=== PATIENT | male | born 1990 | race Caucasian/White ===

== ENCOUNTER 2021-02-24 12:47 | Emergency (ER) | payer MEDICAID ==
--- NOTE | 2021-02-24 13:46 | XRAY Report ---
PROCEDURE: Wrist 3 View RT INDICATIONS: FOOSH, skateboarding TECHNIQUE: 3 views of the wrist were acquired. COMPARISON: None FINDINGS: Bones: No fractures or dislocations. No suspicious bony lesions. Soft tissues: No suspicious soft tissue calcifications. Soft tissue swelling is noted diffusely thr oughout the wrist. IMPRESSION: Soft tissue swelling without evidence of an acute osseous abnormality. Reviewed by: Marco Benton DO on 02/24/2021 12:44 PM JETHRO Approved by: Marco Benton DO on 02/24/2021 12:44 PM AKAZUL Station ID: [id number]
[2021-02-24] MEDS ORDERED: HYDROcod/ACETAM 5/325 MG TABLET PO STA (14:17)
--- NOTE | 2021-02-24 14:23 | ED Physician Documentation ---
PD HPI UPPER EXT INJURY - Stated complaint Stated Complaint: RT WRIST INJ - Chief complaint Chief Complaint: Ext Problem - History obtained from History obtained from: Patient - History of Present Illness Location: Right, Wrist Type of injury: Fall Where injury occurred: [place] Timing - onset: Last night Pain level max: 7 Pain level now: 5 - Additonal information Additional information: Patient is a 30-year-old male, left-handed [place] the right wrist. Complains of pain to the right wrist, worse with movement better with rest. Is not anticoagulated. No deformity Review of Systems Constitutional: denies: Fever, Chills Musculoskeletal: denies: Neck pain, Back pain Neurologic: denies: Head injury PD PAST MEDICAL HISTORY - Past Medical History Past Medical History: No - Past Surgical History Past Surgical History: Yes - Present Medications Home Medications: Ambulatory Orders Medication Instructions Recorded Confirmed Sucralfate 1 gm PO ACHS #30 tablet 06/25/16 HYDROcod/ACETAM 5/325 [[place] 5/325] 1 - 2 ea PO Q6H PRN #7 tablet 02/24/21 - Allergies Allergies/Adverse Reactions: Allergies Allergy/AdvReac Type Severity Reaction Status Date / Time No Known Drug Allergies Allergy Verified 02/24/21 13:17 - Social History Does the pt smoke?: No Smoking Status: Never smoker Does the pt drink ETOH?: Yes Does the pt have substance abuse?: Yes - Immunizations Immunizations are current?: No Immunizations: TDAP >10years/unknown - POLST Patient has POLST: No PD ED PE NORMAL - Vitals Vital signs reviewed: Yes - General General: Alert and oriented X 3, No acute distress - HEENT HEENT: Moist mucous membranes - Neck Neck: Supple, no meningeal sign - Derm Derm: Warm and dry - Extremities Extremities: Other (Tender to palpation over the right wrist, tenderness over the anatomical snuffbox. No deformity. Full range of motion. Neurovascularly intact. The tenderness at the wrist is diffuse. No swelling) - Neuro Neuro: Alert and oriented X 3 - Psych Psych: Normal mood, Normal affect Results - Vitals Vitals: Vital Signs - 24 hr 02/24/21 13:15 Temperature 36.3 C L Heart Rate 64 Respiratory 16 Rate Blood Pressure 119/67 O2 Saturation 100 Oxygen O2 Source Room air - Rads (name of study) Right wrist x-ray Radiology: Prelim report reviewed, EMP read contemporaneously, See rad report (No acute abnormality) PD MEDICAL DECISION MAKING - ED course Complexity details: considered differential, d/w patient ED course: 30-year-old male with negative x-rays, but concern for possible occult scaphoid fracture. Therefore will place in a Velcro thumb spica and have him follow-up with orthopedics within 1 week for repeat x-ray. Neurovascularly intact. Patient counseled regarding signs and symptoms for which I believe and urgent re-evaluation would be necessary. Patient with good understanding of and agreement to plan and is comfortable going home at this time This document was made in part using voice recognition software. While efforts are made to proofread this document, sound alike and grammatical errors may occur. Departure - Departure Disposition: 01 Home, Self Care Clinical Impression: Right wrist sprain Qualifiers: Encounter type: initial encounter Qualified Code(s): S63.501A - Unspecified sprain of right wrist, initial encounter Condition: Good Instructions: ED Sprain Wrist Follow-Up: [facility] [Provider Group] - Within 1 week Prescriptions: HYDROcod/ACETAM 5/325 [[place] 5/325] 1 - 2 ea PO Q6H PRN #7 tablet PRN Reason: Pain Comments: Wear the Velcro thumb spica until seen by orthopedics. They will need to julio- ray your wrist to confirm there is no scaphoid fracture. Use the Vicodin for any breakthrough pain. Do not drink alcohol or drive while on narcotic pain medicine. Note that many narcotic pain relievers also contain tylenol/acetaminophen. Please ensure that your total dose of acetaminophen from all sources does not exceed 3 grams (3000mg) per day. You may constipated on this medication, take a stool softener such as "Colace" twice a day while you are on it. Also recommend a infk-yge-vubrffl laxative such as senna or MiraLAX any day that you do not have a bowel movement. If you received narcotic pain medication in the emergency department, do not drive or operate machinery for the next 24 hours.
[2021-02-24 14:40] VITALS: BP 102/67
== END 2021-02-24 14:43 | disposition home or self-care (01) ==
LOC: ED 12:47
DX: S63.501A Unspecified sprain of right wrist, initial encounter (principal); V00.131A Fall from skateboard, initial encounter; Y93.51 Activity, roller skating (inline) and skateboarding; Y92.830 Public park as the place of occurrence of the external cause
CPT/HCPCS: 73110; 99283; 99284; A9270

== ENCOUNTER 2021-02-28 09:22 | Outpatient (CLI) | payer MEDICAID ==
--- NOTE | 2021-02-28 09:53 | XRAY Report ---
PROCEDURE: Wrist 4 View RT INDICATIONS: PAIN IN RIGHT WRIST TECHNIQUE: 4 views of the wrist were acquired. COMPARISON: X-ray of the right wrist, 3 views, 02/23/2021. FINDINGS: Bones: No fractures or dislocations. No suspicious bony lesions. Scaphoid view: Scaphoid is intact. Soft tissues: No suspicious soft tissue calcifications. IMPRESSION: No acute osseous abnormality. Reviewed by: Maciej Noguera MD on 02/28/2021 9:51 AM PDT Approved by: Maciej Noguera MD on 02/28/2021 9:51 AM PDT Station ID: [id number]
== END 2021-02-28 23:59 | disposition home or self-care (01) ==
LOC: DI.N 09:22
PROVIDERS: ATTEND Physician Assistant
DX: M25.561 Pain in right knee (principal)

== ENCOUNTER 2021-03-07 10:07 | Outpatient (CLI) | payer MEDICAID ==
--- NOTE | 2021-03-07 13:33 | XRAY Report ---
PROCEDURE: Wrist 4 View RT INDICATIONS: PAIN IN WRIST, RIGHT TECHNIQUE: 4 views of the wrist were acquired. COMPARISON: Plain films dated 02/28/2021 FINDINGS: Bones: No fractures or dislocations. No suspicious bony lesions. Scaphoid view: Negative Soft tissues: No suspicious soft tissue calcifications. IMPRESSION: No acute fracture. No osseous lesion. If symptoms and/or clinical suspicion for pathology continue, f urther assessment with repeat plain films, or advanced imaging (e.g., CT, MRI, or bone scan) is recom mended for further assessment. Reviewed by: Francie Raphael MD on 03/07/2021 1:31 PM PDT Approved by: Francie Raphael MD on 03/07/2021 1:31 PM PDT Station ID: [id number]
== END 2021-03-07 23:59 | disposition home or self-care (01) ==
LOC: DI.N 10:07
PROVIDERS: ATTEND Physician Assistant
DX: M25.531 Pain in right wrist (principal)

== ENCOUNTER 2021-07-11 16:31 | Outpatient (CLI) | payer MEDICAID | END 2021-07-11 16:32 | disposition home or self-care (01) | LOC: COV 16:31 | PROVIDERS: ATTEND Family Medicine | DX: R07.0 Pain in throat (principal); Z20.822 Contact with and (suspected) exposure to COVID-19 ==

== ENCOUNTER 2021-08-05 19:01 | Outpatient (CLI) | payer MEDICAID | END 2021-08-05 19:02 | disposition home or self-care (01) | LOC: COV 19:01 | PROVIDERS: ATTEND Family Medicine | DX: R05.9 Cough, unspecified (principal); R07.0 Pain in throat; R09.81 Nasal congestion; J34.89 Other specified disorders of nose and nasal sinuses; Z20.822 Contact with and (suspected) exposure to COVID-19 ==

== ENCOUNTER 2022-01-10 08:01 | Emergency (ER) | payer MEDICAID ==
[2022-01-10 08:18] VITALS: BP 145/83
--- NOTE | 2022-01-10 08:30 | ED Physician Documentation ---
PD HPI ABD PAIN - Stated complaint Stated Complaint: ABD PX - Chief complaint Chief Complaint: Abd Pain - History obtained from History obtained from: Patient - History of Present Illness Timing - onset: How many weeks ago (3) Timing - duration: Weeks (3) Timing - details: Gradual onset, Still present, Waxing and waning Quality: Throbbing Location: Periumbilical Radiation: No: Chest, , Lower back, Left flank, Left shoulder, Right flank, Right shoulder, Upper back Improved by: Other (nothing) Worsened by: Other (nothing) Associated symptoms: No: Fever, Nausea, Vomiting, Hematemesis, Diarrhea, Con stipation, Melena, Hematochezia, Dysuria, Hematuria, Chest pain, Dizzy, Near syncope / syncope, Loss of appetite, Weight loss Similar symptoms before: Has not had sx before Recently seen: Not recently seen Review of Systems Constitutional: denies: Fever Ears: denies: Ear pain Nose: denies: Congestion Throat: denies: Sore throat Cardiac: denies: Chest pain / pressure, Palpitations Respiratory: denies: Dyspnea, Cough GI: reports: Abdominal Pain. denies: Nausea, Constipation, Diarrhea : denies: Dysuria, Frequency Skin: denies: Rash Musculoskeletal: denies: Neck pain, Back pain, Extremity pain Neurologic: denies: Generalized weakness, Focal weakness, Numbness Psychiatric: denies: Depressed PD PAST MEDICAL HISTORY - Past Surgical History Past Surgical History: Yes - Present Medications Home Medications: Ambulatory Orders Medication Instructions Recorded Confirmed No Known Home Medications 01/10/22 01/10/22 - Allergies Allergies/Adverse Reactions: Allergies Allergy/AdvReac Type Severity Reaction Status Date / Time No Known Drug Allergies Allergy Verified 01/10/22 08:18 - Social History Does the pt smoke?: No Smoking Status: Never smoker Does the pt drink ETOH?: Yes Does the pt have substance abuse?: Yes - Immunizations Immunizations are current?: No Immunizations: TDAP >10years/unknown - POLST Patient has POLST: No PD ED PE NORMAL - Vitals Vital signs reviewed: Yes (hypertensive ) - General General: Alert and oriented X 3, Well developed/nourished, Other (thin anxious appearing male ) - HEENT HEENT: Atraumatic, PERRL, EOMI - Neck Neck: Supple, no meningeal sign, No bony TTP - Cardiac Cardiac: RRR, No murmur - Respiratory Respiratory: No respiratory distress, Clear bilaterally - Abdomen Abdomen: Normal bowel sounds, Soft, Non distended, No organomegaly, Other (minimal tenderness to the marcello-umbilical area without gaurding or rebound tenderness. Unable to palpate pulsations. ) - Back Back: No CVA TTP, No spinal TTP - Derm Derm: Normal color, Warm and dry, No rash - Extremities Extremities: No deformity, No edema - Neuro Neuro: Alert and oriented X 3, paper box maker 2-12 intact, No motor deficit, No sensory deficit, Normal speech Eye Opening: Spontaneous Motor: Obeys Commands Verbal: Oriented GCS Score: 15 - Psych Psych: Normal affect, Other (mood is anxious) Results - Vitals Vitals: Vital Signs - 24 hr 01/10/22 08:12 Temperature 36.0 C L Heart Rate 74 Respiratory 18 Rate Blood Pressure 145/83 H O2 Saturation 100 Oxygen O2 Source Room air - Labs Labs: Laboratory Tests 01/10/22 01/10/22 08:38 08:38 WBC 4.3 L RBC 4.82 Hgb 15.4 Hct 44.5 MCV 92.3 MCH 32.0 H MCHC 34.6 RDW 11.9 L Plt Count 218 MPV 10.1 Neut # (Auto) 1.5 Lymph # (Auto) 1.7 [place] # (Auto) 0.5 Eos # (Auto) 0.4 Baso # (Auto) 0.1 Absolute Nucleated RBC 0.00 Nucleated RBC % 0.0 Sodium 133 L Potassium 4.0 Chloride 98 L Carbon Dioxide 26 Anion Gap 9.0 BUN 26 H Creatinine 0.8 Estimated GFR (MDRD) 114 Glucose 98 Calcium 9.1 Total Bilirubin 1.2 H AST 66 H ALT 28 Alkaline Phosphatase 30 L Total Protein 7.1 Albumin 4.4 Globulin 2.7 Albumin/Globulin Ratio 1.6 Lipase 54 H - Rads (name of study) CT ab pel with Radiology: Prelim report reviewed (Impression: 1. Large amount of fecal matter throughout the colon suggestive of obstipation. Normal appendix. No abnormal bowel wall thickening. No free fluid or free air.), EMP read indepedently, See rad report PD MEDICAL DECISION MAKING - ED course Complexity details: reviewed old records, reviewed results, re-evaluated patient, considered differential, d/w patient ED course: Previously well 31-year-old male presents with several weeks of abdominal discomfort with some pulse attention in the periumbilical area. He does not describe it as pain specifically. On physical examination he has some minimal tenderness to the central abdomen. He does not have peritonitis or acute abdomen. A CT scan done of the abdomen and pelvis shows a significant stool load which the patient was unaware of. He does indicate that he will occasionally have some hard stool. The radiologist reads the scan is consistent with obstipation. I recommended to the patient that we treat the constipation with some milk of magnesia followed by a regular dose of MiraLAX. Departure - Departure Disposition: Home, Self Care Clinical Impression: Constipation Qualifiers: Constipation type: unspecified constipation type Qualified Code(s): K59.00 - Constipation, unspecified Condition: Stable Instructions: ED Constipation Follow-Up: Your, doctor [Other] Comments: Jeremy today it looks like there is excessive stool load in your abdomen. This may be the cause of your pain. The recommendation is to take a dose of milk of magnesia today to evacuate the contents. Following this you will need to retrain your colon so that it will perform normally. This will take about 2 weeks and the recommendation is to use a regular dose of MiraLAX. Both of these medications are available [id number].
--- OUTSIDE RECORDS SUMMARY | 2022-01-10 08:32 | EXTERNAL MEDICAL SUMMARY RPT | Continuity of Care Document ---
:1990 Author Organization [facility] Address [address] [place] [address] Phone Care Team Providers Name Role Phone Miscellaneous Unavailable Unavailable Allergies No information. Encounters No information. Medications No information. Problems Procedures date description facility 20211224 [facility] Results No information. Vital Signs date measurement value source 20211224 weight_standard 145 lb 20211224 weight_metric 65.77 kg 20211224 heart_rate 65 /min 20211224 BP_systolic 120 mm[Hg] 20211224 BP_diastolic 82 mm[Hg]
[2022-01-10 08:43] LABS: BASOPHILS # (AUTO) 0.1 10^3/uL (0.0-0.1); BASOPHILS % (AUTO) 1.2 %; EOSINOPHILS # (AUTO) 0.4 10^3/uL (0.0-0.7); EOSINOPHILS % (AUTO) 10.3 %; HCT - HEMATOCRIT 44.5 % (42.0-52.0); HGB - HEMOGLOBIN 15.4 g/dL (14.0-18.0); LYMPHOCYTES # (AUTO) 1.7 10^3/uL (1.5-3.5); MEAN CORPUSCULAR HGB CONC 34.6 g/dL (32.0-36.0); MEAN CORPUSCULAR VOLUME 92.3 fL (80.0-94.0); MEAN PLATELET VOLUME 10.1 fL (7.4-11.4); MONOCYTES # (AUTO) 0.5 10^3/uL (0.0-1.0); MONOCYTES % (AUTO) 12.4 %; NEUTROPHILS # (AUTO) 1.5 10^3/uL (1.5-6.6); NEUTROPHILS % (AUTO) 35.9 %; PLT - PLATELET COUNT 218 10^3/uL (130-450); RED BLOOD COUNT 4.82 10^6/uL (4.70-6.10); RED CELL DISTRIBUTION WIDTH 11.9 % (12.0-15.0); WHITE BLOOD COUNT 4.3 x10^3/uL (4.8-10.8)
[2022-01-10 08:56] LABS: ALBUMIN 4.4 g/dL (3.2-5.5); ALBUMIN/GLOBULIN RATIO 1.6 (1.0-2.2); BILIRUBIN,TOTAL 1.2 mg/dL (0.2-1.0); CALCIUM 9.1 mg/dL (8.5-10.3); CREATININE 0.8 mg/dL (0.6-1.2); TOTAL PROTEIN 7.1 g/dL (6.7-8.2)
[2022-01-10] MEDS ORDERED: IOVERSOL 320 100 ML VIAL IVP ONE ×2 (09:16→09:32)
--- NOTE | 2022-01-10 09:54 | CT Report ---
PROCEDURE: Abdomen/Pelvis W INDICATIONS: throbbing periumbilical pain/mass CONTRAST: IV CONTRAST: Optiray 320 ml: 100 PO CONTRAST: *NO PO CONTRAST TECHNIQUE: After the administration of IV contrast, 5 mm thick sections acquired from the diaphragms to the symp hysis. 5 mm thick coronal and sagittal reformats were acquired. For radiation dose reduction, the f ollowing was used: automated exposure control, adjustment of mA and/or kV according to patient size. COMPARISON: None. FINDINGS: Image quality: Excellent. ABDOMEN: Lung bases: Lung bases are clear. Heart size is normal. Solid organs: Liver and spleen are normal in size and enhancement. Gallbladder is within normal pathak its Biliary system is non dilated. Pancreas enhances normally. No adrenal nodules. Kidneys demons trate normal size and enhancement, without hydronephrosis. Peritoneum and bowel: There is significant fecal stasis in the colon extending to the rectum. No wes pia or small bowel wall thickening. No colonic wall thickening. Appendix is visualized in right lower quadrant abdomen and is normal in size and appearance. No free fluid of free air. Nodes and vessels: No retroperitoneal or mesenteric adenopathy by size criteria. Aorta and inferior vena cava are normal in size. Miscellaneous: No ventral hernias. PELVIS: Genitourinary: Bladder wall thickness is normal. Miscellaneous: No inguinal hernias or adenopathy. Bones: No suspicious bony lesions. No vertebral body compression fractures. IMPRESSION: 1. Large amount of fecal matter throughout the colon suggestive of obstipation. 2. Normal appendix. No abnormal bowel wall thickening. No free fluid of free air. Reviewed by: Geovanni Sánchez MD on 01/10/2022 9:53 AM PDT Approved by: Geovanni Sánchez MD on 01/10/2022 9:53 AM PDT Station ID: [id number]
== END 2022-01-10 10:46 | disposition home or self-care (01) ==
LOC: ED 08:01
DX: K59.00 Constipation, unspecified (principal)
CPT/HCPCS: 36415; 74177; 80053; 83690; 85025; 99282; 99284; Q9967